=== PATIENT | female | born 1945 | race Caucasian/White ===

== ENCOUNTER 2018-05-15 18:42 | Emergency (ER) | payer MEDICARE, MEDICAID, SELFPAY ==
[2018-05-15 18:44] VITALS: BP 142/76; PULSE 88; RESP 18; TEMP 36.3; O2SAT 98; BMI 20.6
--- NOTE | 2018-05-15 18:54 | RAD_ITS ---
STUDY: X-RAY - LEFT RADIUS AND ULNA REASON FOR EXAM: Female, 72 years old. Fall TECHNIQUE: 2 view(s) of the forearm. COMPARISON: None. FINDINGS: There is no demonstrated soft tissue swelling. There is demineralization of the radius. There is a comminuted distal radial fracture that appears intra-articular. There appears to be a nondisplaced distal ulnar fracture visualized as well. There is demineralization of the ulna. RAD/Forearm 2 Views IMPRESSION: Comminuted distal radial fracture. Likely nondisplaced distal ulnar fracture. Electronically Signed: Melyssa Escalante MD at 20:10 EST Tel , Service support ,
--- NOTE | 2018-05-15 19:06 | RAD_ITS ---
STUDY: X-RAY - PELVIS REASON FOR EXAM: Female, 72 years old. Fall. TECHNIQUE: One view of the pelvis was obtained. COMPARISON: Right hip dated March 09, 2018 FINDINGS: There is a non-specific bowel gas pattern. Normal visualized soft tissue structures. There are degenerative changes of the sacroiliac joints. Normal visualized bilateral superior and inferior pubic rami. Normal pubic symphysis. Normal ischial tuberosities. There are degenerative changes of the hips characterized by joint space narrowing and subchondral sclerosis. RAD/Pelvis 1 or 2 Views IMPRESSION: Degenerative changes. Electronically Signed: Melyssa Escalante MD at 20:12 EST Tel , Service support ,
--- NOTE | 2018-05-15 20:10 | RAD_ITS ---
STUDY: X-RAY - LEFT SHOULDER REASON FOR EXAM: Female, 72 years old. Fell. TECHNIQUE: 4 view(s) of the shoulder. COMPARISON: None. FINDINGS: Normal glenohumeral articulation. There are degenerative changes of the acromioclavicular joint. Normal acromion. Normal humeral head and visualized proximal humerus. There is a deformity of the mid/distal clavicle transition assistant with a old fracture. The soft tissue structures are unremarkable. Normal visualized pulmonary apex. RAD/Shoulder min 2 Views IMPRESSION: Degenerative changes. Electronically Signed: Melyssa Escalante MD at 20:54 EST Tel , Service support ,
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
--- NOTE | 2018-05-15 21:12 | ED.DEP ---
ED Disposition - Plan for ED Patient: Disposition: Home or Assisted Living Chief Complaint: Fall Instructions: ED Fx Colles Wrist No Redu Requ Referrals: Care Physician,No Primary [Primary Care Provider] - Greg Beltre DO [STAFF PHYSICIAN] -
== END 2018-05-15 21:23 | disposition home or self-care (01) ==
PROVIDERS: Emergency Provider Emergency Medicine
DX: S52.502A Unspecified fracture of the lower end of left radius, initial encounter for closed fracture (principal); S52.602A Unspecified fracture of lower end of left ulna, initial encounter for closed fracture; S30.0XXA Contusion of lower back and pelvis, initial encounter; X58.XXXA Exposure to other specified factors, initial encounter; Y93.I9 Activity, other involving external motion
CPT/HCPCS: 29125; 72170; 73030; 73090; 99282

== ENCOUNTER → 2018-05-20 16:33 | Outpatient (CLI) | payer MEDICARE, MEDICAID, SELFPAY ==
[2018-05-15 18:44] VITALS: BMI 20.6
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
== END ==
PROVIDERS: Referring Provider Physician Assistant Surgical; Visit Provider Physician Assistant Surgical
DX: S32.592A Other specified fracture of left pubis, initial encounter for closed fracture (principal); X58.XXXA Exposure to other specified factors, initial encounter
CPT/HCPCS: 73700

== ENCOUNTER 2018-06-03 18:41 | Emergency (ER) | payer MEDICARE, SELFPAY ==
[2018-06-03 18:43] VITALS: BP 140/74; PULSE 116; RESP 17; TEMP 37.1; O2SAT 100; BMI 20.9
[2018-06-03 19:21] VITALS: BP 157/86; PULSE 114; RESP 22; TEMP 36.1; O2SAT 99
--- NOTE | 2018-06-03 20:14 | EKG12_ITS ---
Test Reason : Blood Pressure : / mmHG Vent. Rate : 107 BPM Atrial Rate : 107 BPM P-R Int : 158 ms QRS Dur : 084 ms QT Int : 346 ms P-R-T Axes : 077 066 077 degrees QTc Int : 461 ms Sinus tachycardia with occasional Premature ventricular complexes Otherwise normal ECG Confirmed by SHARI BRIGGS, ANDRES ([id number]), managing editor CECILIA WIGGINS ([id number] on 06/04/2018 5:18:59 PM Referred By: NICK Confirmed By:ANDRES MCCARTHY MD
--- NOTE | 2018-06-03 20:22 | ED.RN ---
NO OLD EKGS IN MUSE
--- NOTE | 2018-06-03 20:47 | ED.DCSUM_ITS ---
- ER Visit Summary Date of Service: 06/03/18 Chief Complaint: Tachycardia History of Present Illness: The patient is a 72 F who presents with tachycardia that was noticed today. Patient was at a doctor's office and her heart rate was noted to be elevated. Patient was then referred to the emergency department for further evaluation. Patient denies any palpitations. Patient states she fell recently and has a fracture of her pelvis and left distal radius and ulna. Patient states she has been having some pain in her pelvis since the fall. Patient states she has been having difficulty sitting and standing because of the pelvis fracture. Patient states she is also allergic to all medications and has several chemical sensitivities. Patient states she does not take any medications at all. Physical Examination: Vital signs are stable for mild tachycardia of 114. Patient is afebrile. Patient is in no acute distress. Oral mucosa is pink and moist. Neck is supple. Trachea is midline. There is no JVD noted. Heart was regular and tachycardic. Lungs are clear and equal bilaterally. Abdomen is soft and nontender. Cranial nerves II through XII are intact. There are no focal motor or sensory deficits noted. Extremities are intact. There is some mild erythema on the medial aspect of the left ankle. There is no calf tenderness. There is no peripheral edema noted. The remaining physical exam was within normal limits. Test Results: EKG showed sinus tachycardia with a rate of 107. There are no acute ST or T wave changes. There is occasional PVC noted. There are no prior EKGs available for comparison. Basic metabolic profile was obtained. Sodium was slightly low at 127. Chloride was slightly low at 90. Emergency Department Course and Treatment: Patient was instructed to go home and rest. Patient does not want any further testing or treatment done at this time. Patient does not want any medications to help with her tachycardia. I feel that the tachycardia is most likely due to anxiety. Patient was instructed to follow-up with her primary care physician in 5-7 days. Patient and her family understood and were agreeable with the plan. All questions were answered. Disposition: Discharge home Impression: 1. Tachycardia This note was generated with [employer] software. It may contain incorrect words, spelling, and punctuation that were not noted in review of the chart prior to signing ED Disposition - Plan for ED Patient: Disposition: Home or Assisted Living Chief Complaint: Other, Pain/Inj Diagnosis: Tachycardia Instructions: ED Palpitations Referrals: Care Physician,No Primary [Primary Care Provider] - Jihan Perea DO [STAFF PHYSICIAN] -
[2018-06-03 20:50] VITALS: BP 146/70; PULSE 125; RESP 16; O2SAT 97
[2018-06-03 21:42] LABS: Anion Gap 9 (5-15); BUN 14 mg/dL (7-18); BUN/Creat Ratio 17.3 RATIO (10-20); Calcium,Total 8.5 mg/dL (8.5-10.1); Chloride 93 mmol/L (98-107); Creatinine, Serum 0.81 mg/dL (0.55-1.02); EST Glomerular Filtration Rate 74 mL/min (>60); Est Glom Filt Rate - Afr Amer 89 mL/min (>60); Estimated Creatinine Clearance 58.44 ml/min; Glucose 113 mg/dL (74-106); Potassium 3.7 mmol/L (3.5-5.1); Sodium Level 127 mmol/L (136-145)
[2018-06-03 21:46] VITALS: BP 150/80; PULSE 117; RESP 18; O2SAT 98
[2018-06-03 23:29] VITALS: BP 155/90; PULSE 105; RESP 16; O2SAT 97; O2SAT 98
== END 2018-06-03 23:33 | disposition home or self-care (01) ==
PROVIDERS: Emergency Provider Emergency Medicine
DX: R00.0 Tachycardia, unspecified (principal)
CPT/HCPCS: 80048; 93005; 99283; A4216

== ENCOUNTER 2021-06-21 14:24 | Outpatient (CLI) | payer MEDICARE, SELFPAY | END 2021-06-21 23:59 | disposition short-term general hospital (02) | LOC: LABSPEC 14:24 | PROVIDERS: Referring Provider Physician Assistant Surgical; Visit Provider Physician Assistant Surgical | DX: Z20.822 Contact with and (suspected) exposure to COVID-19 (principal) | CPT/HCPCS: 87635; U0003; U0005 ==

== ENCOUNTER 2022-11-26 20:00 | Inpatient (IN) | payer MEDICARE, MEDICAID, SELFPAY ==
[2022-11-26 20:04] VITALS: BP 154/101; PULSE 128; RESP 16; TEMP 36.7; O2SAT 98; BMI 25.0
--- NOTE | 2022-11-26 20:20 | EDS_ITS ---
HPI <YODIT Vasquez - Last Filed: 11/26/22 20:55> History of Present Illness Chief Complaint: Other, Pain/Inj Narrative Narrative: 77-year-old female presents with pelvic pain and inability to ambulate x5 days. No fall or trauma. She was more active than usual and started to have pain and got into bed and then was not able to get up. The left side of her pelvis hurts worse and both knees are painful. She refuses to take any medications so has not been taking anything for pain. Her daughters come over to help with ADLs and toileting. She has a history of a remote left pelvic fracture. She has no weakness, numbness or tingling. She does not take any medications. PFSH <YODIT Vasquez - Last Filed: 11/26/22 20:55> [facility] Medical History Arthritis Osteopenia Pelvic fracture Allergy/AdvReac Type Severity Reaction Status Date / Time ALL MEDS Allergy Other Uncoded 06/03/18 18:43 Social History Smoking Status: Never smoker ROS <YODIT Vasquez Last Filed: 11/26/22 20:55> ROS ED ROS Narrative Constitutional: Negative for fever, chills, malaise. CVS: Negative for palpitations, chest pain, syncope. Respiratory: Negative for shortness of breath, cough. GI: Negative for abdominal pain, nausea, vomiting : Negative for dysuria. Neuro: Negative for motor/sensory dysfunction. Skin: Negative for wound. Musc: Positive for bilateral hip and knee pain. No trauma. EXAM <YODIT Vasquez - Last Filed: 11/26/22 20:55> Physical Exam Narrative Exam Narrative: CONST: Patient sitting in no acute distress. EYES: Normal inspection. NECK: Normal inspection. RESP: No respiratory distress, CTAB. CVS: Regular rate and rhythm, no murmur, no gallop. ABD: Soft and nontender, no guarding or rebound, nondistended. Pelvis: Stable, tender left greater than right. SKIN: Color normal, no rash, warm, dry, intact. EXTREMITIES: Normal appearance of upper and lower extremities, full ROM upper extremities with no tenderness and 2+ radial pulses. Pain with range of motion of both hips and knees. Patient yells when I touch any of these areas very lightly. No deformity, no shortening or rotation, normal sensation and 2+ DP pulses. NEURO: Alert to self, place, month, stated year was 2002. PSYCH: Normal affect. Const Vital Signs: 11/26/22 20:04 11/26/22 21:41 11/26/22 20:17 Temperature 98.0 F Temperature Source Temporal Pulse Rate 128 H 130 H Respiratory Rate 16 23 H Respiratory Effort Non-Labored Blood Pressure 154/101 H 173/81 H Blood Pressure Mean 118 111 Pulse Ox 98 97 Oxygen Delivery Method Room Air Room Air 11/26/22 22:47 Temperature 98.0 F Temperature Source Temporal Pulse Rate 124 H Respiratory Rate 20 H Respiratory Effort Blood Pressure 158/93 H Blood Pressure Mean 114 Pulse Ox 97 Oxygen Delivery Method Room Air <Dr. Arun Myers DO - Last Filed: 11/26/22 23:26> Physical Exam Const Vital Signs: 11/26/22 20:04 11/26/22 21:41 11/26/22 20:17 Temperature 98.0 F Temperature Source Temporal Pulse Rate 128 H 130 H Respiratory Rate 16 23 H Respiratory Effort Non-Labored Blood Pressure 154/101 H 173/81 H Blood Pressure Mean 118 111 Pulse Ox 98 97 Oxygen Delivery Method Room Air Room Air 11/26/22 22:47 Temperature 98.0 F Temperature Source Temporal Pulse Rate 124 H Respiratory Rate 20 H Respiratory Effort Blood Pressure 158/93 H Blood Pressure Mean 114 Pulse Ox 97 Oxygen Delivery Method Room Air [facility] <YODIT Vasquez - Last Filed: 11/26/22 20:55> [facility] Narrative Medical decision making narrative: History gathered from: Patient and daughter She has atraumatic pelvic and bilateral knee pain causing an inability to ambulate x5 days. She appears well and nontoxic. She was hypertensive and tachycardic in triage but clinically does not look septic. She is somewhat agitated which may contribute to these vital signs. She has no external signs of injury. She has pain to light touch on both sides of her pelvis and both knees but they are symmetric and distal pulses are intact. X-rays were ordered to rule out fracture but this is unlikely with no history of trauma. Since she has been lying in bed for 5 days blood work was also ordered. She refused to let the nurse leave an IV in or receive IV fluids. Tests are pending and case will be signed over to my attending physician. Differential: Fracture, arthritis, inflammatory joint process, electrolyte abnormality Lab Data Attestation: I reviewed the patient's lab results. Labs: Laboratory Results - last 24 hr 11/26/22 11/26/22 20:30 22:30 WBC 10.1 RBC 3.24 L Hgb 11.2 L Hct 32.0 L MCV 98.8 MCH 34.6 H MCHC 35.0 RDW Std Deviation 45.1 H RDW Coeff of Wanda 12.4 Plt Count 374 MPV 8.6 Immature Gran % (Auto) 0.500 Neut % (Auto) 79.9 H Lymph % (Auto) 9.5 L Warren % (Auto) 9.6 Eos % (Auto) 0.3 Baso % (Auto) 0.2 Absolute Neuts (auto) 8.1 H Absolute Lymphs (auto) 0.96 Nucleated RBC % 0 ESR 37 H Sodium 118 L* Potassium 3.6 Chloride 85 L Carbon Dioxide 27.0 Anion Gap 6 BUN 18 Creatinine 0.69 Estim Creat Clear Calc 45.82 Est GFR (MDRD) Af Amer 106 Est GFR (MDRD) Non-Af 88 BUN/Creatinine Ratio 26.0 H Glucose 127 H Calcium 9.0 Total Creatine Kinase 486 H C-React Prot Ext Range 220.00 H Urine Color Yellow Urine Clarity Clear Urine pH 7.0 Ur Specific [place] 1.010 Urine Protein 30 H Urine Glucose (UA) Normal Urine Ketones 15 H Urine Occult Blood 25 H Urine Nitrite Negative Urine Bilirubin Negative Urine Urobilinogen 8 H Ur Leukocyte Esterase Negative Urine RBC 0 SEEN Urine WBC 0 SEEN Ur Squamous Epith Cells 0 SEEN Urine Bacteria 0 SEEN Urine Mucus 0 SEEN Radiography Diagnostic Testing: Clinical Impression(s) from Imaging Studies Chest X-Ray 11/26/22 20:50 IMPRESSION: No acute radiographic abnormalities. Electronically Signed: Sabas Benedict MD at 22:38 EDT , KUB X-Ray 11/26/22 20:50 IMPRESSION: Findings concerning for small bowel obstruction. Electronically Signed: Sabas Benedict MD at 22:37 EDT , ADDENDUM: 11/26/22 2251 IMPRESSION: Findings concerning for small bowel obstruction. N.B. : Justin Huizar MD, confirmed on 11/26/2022 22:44:59 (ET) that the healthcare facility has received the radiology report. Electronically Signed: Sabas Benedict MD at 22:37 EDT , Knee X-Ray 11/26/22 20:50 IMPRESSION: Moderate, lateral compartment predominant, tricompartmental degenerative arthrosis of the knee. Chondrocalcinosis consistent with CPPD. Small joint effusion. Electronically Signed: Sabas Benedict MD at 22:36 EDT , <Dr. Arun Myers, DO - Last Filed: 11/26/22 23:26> [facility] Narrative Medical decision making narrative: History gathered from: Patient and daughter, MARIO She has atraumatic pelvic and bilateral knee pain causing an inability to amb ulate x5 days. She appears well and nontoxic. She was hypertensive and tachycardic in triage vitals but clinically does not look septic. Patient arrived by EMS. she is somewhat agitated which may contribute to these vital signs. She has no external signs of injury. She has pain to light touch on both sides of her pelvis and both knees but they are symmetric and distal pulses are intact. X-rays were ordered to rule out fracture but this is unlikely with no history of trauma. Since she has been lying in bed for 5 days blood work was also ordered. She refused to let the nurse leave an IV in or receive IV fluids. Tests are pending and case will be signed over to my attending physician. Differential: Fracture, arthritis, inflammatory joint process, electrolyte abnormality Lab Data Attestation: I reviewed the patient's lab results. Labs: Laboratory Results - last 24 hr 11/26/22 11/26/22 20:30 22:30 WBC 10.1 RBC 3.24 L Hgb 11.2 L Hct 32.0 L MCV 98.8 MCH 34.6 H MCHC 35.0 RDW Std Deviation 45.1 H RDW Coeff of Wanda 12.4 Plt Count 374 MPV 8.6 Immature Gran % (Auto) 0.500 Neut % (Auto) 79.9 H Lymph % (Auto) 9.5 L Warren % (Auto) 9.6 Eos % (Auto) 0.3 Baso % (Auto) 0.2 Absolute Neuts (auto) 8.1 H Absolute Lymphs (auto) 0.96 Nucleated RBC % 0 ESR 37 H Sodium 118 L* Potassium 3.6 Chloride 85 L Carbon Dioxide 27.0 Anion Gap 6 BUN 18 Creatinine 0.69 Estim Creat Clear Calc 45.82 Est GFR (MDRD) Af Amer 106 Est GFR (MDRD) Non-Af 88 BUN/Creatinine Ratio 26.0 H Glucose 127 H Calcium 9.0 Total Creatine Kinase 486 H C-React Prot Ext Range 220.00 H Urine Color Yellow Urine Clarity Clear Urine pH 7.0 Ur Specific [place] 1.010 Urine Protein 30 H Urine Glucose (UA) Normal Urine Ketones 15 H Urine Occult Blood 25 H Urine Nitrite Negative Urine Bilirubin Negative Urine Urobilinogen 8 H Ur Leukocyte Esterase Negative Urine RBC 0 SEEN Urine WBC 0 SEEN Ur Squamous Epith Cells 0 SEEN Urine Bacteria 0 SEEN Urine Mucus 0 SEEN Radiography Chest X-Ray - ED: Read by ED Physician (2 view chest x-ray pelvis, KUB, and bilateral x-ray of the knees were read by . No acute cardiopulmonary disease, no infiltrate, no effusion. Patient's pelvis and bilateral knee x-ray was also read, no acute abnormalities. KUB was also read, nonspecific bowel gas pattern, no air-fluid.) Diagnostic Testing: Clinical Impression(s) from Imaging Studies Chest X-Ray 11/26/22 20:50 IMPRESSION: No acute radiographic abnormalities. Electronically Signed: Sabas Benedict MD at 22:38 EDT , KUB X-Ray 11/26/22 20:50 IMPRESSION: Findings concerning for small bowel obstruction. Electronically Signed: Sabas Benedict MD at 22:37 EDT , ADDENDUM: 11/26/22 2251 IMPRESSION: Findings concerning for small bowel obstruction. N.B. : Justin Huizar MD, confirmed on 11/26/2022 22:44:59 (ET) that the healthcare facility has received the radiology report. Electronically Signed: Sabas Benedict MD at 22:37 EDT , Knee X-Ray 11/26/22 20:50 IMPRESSION: Moderate, lateral compartment predominant, tricompartmental degenerative arthrosis of the knee. Chondrocalcinosis consistent with CPPD. Small joint effusion. Electronically Signed: Sabas Benedict MD at 22:36 EDT , EKG Initial EKG: Attestation: I personally reviewed and interpreted this EKG as follows: Comments: EKG interpretation. Sinus tachycardia 125. Normal axis deviation. No acute ST elevation, no acute ectopy. QTc of 450. Additional Tests and Interventions Additional Tests or Interventions: Radiologist read KUB and pelvis x-ray as concern for possible small bowel obstruction. These results were discussed with admitting hospitalist, Dr. Rudolph. CT of the abdomen pelvis will be ordered, at the recommendation of Dr. Rudolph, and he will follow the results of test as well. Treatment and Re-Evaluation Comments:: Patient initially presented tachycardic in the 120?130s. Patient was refusing IV, IV fluids. Patient and her daughter at bedside is the power of disability attorney understand the importance of IV fluids for initial presentation secondary to being bedridden for the past 4 to 5 days. Patient is adamant she has been drinking enough water at home, and was refusing IV fluids at this time. patient sodium was 118, chloride was 85. BUN was 26, glucose 124, CK was 486. Daughter has been at bedside throughout patient's ER visit. Patient's daughter is power of disability attorney. SHe has been is extremely difficult to take care of this patient trying to get her to allow us to perform medical intervention including establishing an IV, giving her IV fluids, especially normal saline, and also placing Jung catheter to help measure I's and O's and obtain urine sample. Patient was initially seen evaluated by Jihan physician customer care assistant. I then spoke to the patient at bedside with Jihan CABRERA and nursing staff Jihan CHUNG as a witness at bedside trying to reason with the patient to allow us to take care of her. Patient was initially on a Alvarado backboard, initially refusing to be removed from the Alvarado backboard for unknown reason. Patient is refusing any type of medications, refusing any type of pain medications. Patient is alert and orient x3, slightly confused to the year, but knows it is November, her name, and she is at [facility]. Patient does have the right to refuse pain medication, but I was trying to reason with the patient to allow IV, IV fluids because she has been in bed for 5 days, most likely dehydrated, rhabdomyolysis, and having other lab abnormalities was explained to the patient and daughter on why the patient was not making the proper decision by refusing care initially. Questionable whether patient is slightly delirious from other organic etiologies was discussed with patient's daughter, nursing staff and Jihan CABRERA outside After we received patient's lab work to come back, along with x-ray findings, another discussion was had by myself, Jihan CHUNG, and the daughter at bedside for another 20 minutes. Patient finally was agreeing to Jung catheter, IV placement, and IV normal saline. Patient understands hyponatremia, rhabdomyolysis, acute kidney injury, and the need for further treatment admission to the hospital. Patient is agreeing. Patient's case was discussed with nighttime hospitalist, Dr. Rudolph. Dr Rudolph want a repeat basic metabolic test ordered, and then also wanted a CT of the abdomen pelvis secondary to the radiographic reading from the radiologist of concern for small bowel obstruction. Patient has IV iodine dye, patient is refusing any type of pretreatment or IV iodine treatment for CT of the abdomen pelvis. Patient is refusing to drink oral contrast. Patient will have a noncontrast CT of the abdomen and pelvis because she is refusing any other medication besides IV no rmal saline at this time. Patient is going to be admitted to [facility] inpatient telemetry status and Dr. Rudolph will follow-up on the results of the CT of the abdomen pelvis this evening. <Dr. Arun Myers, DO - Last Filed: 11/26/22 23:26> Critical Care Time Critical care time (excluding procedures): 30-74 minutes (Multiple bedside visits were made by myself, physician customer care assistant, nursing staff, trying to reason with the patient, discussed patient's care with daughter outside the patient's room, and try to educate patient on a appropriate decision making needed to allow us to help treat her in the ER tonight. ) Discharge Plan Dx/Rx/DC Orders Clinical Impression: Inability to walk, Acute kidney injury, Acute dehydration, Rhabdomyolysis, Tachycardia, Acute hyponatremia, Hypochloremia, Acute bilateral knee pain Disposition Disposition: [facility]
[2022-11-26 20:47] LABS: Absolute Lymphocyte Count 0.96 X10^3/uL (0.83-4.51); Absolute Neutrophil Count 8.1 X10^3/uL (2.0-7.7); Basophil# 0.02 X10^3/uL; Basophil% 0.2 % (0-1); Eosinophil# 0.03 X10^3/uL; Eosinophils% 0.3 % (0-5); Hemoglobin 11.2 g/dL (12.0-15.0); Lymphocyte # 0.96 X10^3/ul (0.83-4.51); Lymphocyte % 9.5 % (19-41); Mean Corpuscular Hgb 34.6 pg (27.0-32.0); Mean Corpuscular Volume 98.8 fL (81-99); Mean Platelet Vol. 8.6 fl (6.2-12.0); Monocyte# 0.97 X10^3/uL; Monocyte% 9.6 % (0-10); NRBC Flagged by Analyzer 0 % (0-5); Neutrophil # 8.08 X10^3/uL (2.7-7.7); Neutrophil % 79.9 % (47-70); Platelet Count 374 K/mm3 (150-450); RBC Distribution Width CV 12.4 % (11.6-14.6); RBC Distribution Width SD 45.1 fl (35.1-43.9); Red Blood Count 3.24 M/mm3 (4.2-5.4); White Blood Count 10.1 K/mm3 (4.4-11.0)
--- NOTE | 2022-11-26 20:49 | EKG12_ITS ---
Test Reason : FALL Blood Pressure : / mmHG Vent. Rate : 125 BPM Atrial Rate : 125 BPM P-R Int : 144 ms QRS Dur : 086 ms QT Int : 312 ms P-R-T Axes : 079 052 066 degrees QTc Int : 450 ms Sinus tachycardia Otherwise normal ECG Confirmed by SHARI BRIGGS, ANDRES ([id number]), publishing editor KENNETH GARLAND ([id number]) on 11/28/2022 11:39:39 AM Referred By: Confirmed By:ANDRES MCCARTHY MD
--- NOTE | 2022-11-26 20:50 | RAD_ITS ---
INDICATION: pain EXAMINATION/TECHNIQUE: X-RAY - RIGHT XR Knee 1 or 2 Views COMPARISON: None. FINDINGS: No acute fracture or malalignment. Moderate, lateral compartment predominant, tricompartmental joint space narrowing and osteophytosis. There is chondrocalcinosis in the medial compartment. Small joint effusion. The soft tissues are unremarkable. RAD/Knee 1 or 2 Views IMPRESSION: Moderate, lateral compartment predominant, tricompartmental degenerative arthrosis of the knee. Chondrocalcinosis consistent with CPPD. Small joint effusion. Electronically Signed: Sabas Benedict MD at 22:36 EDT ,
--- NOTE | 2022-11-26 20:50 | RAD_ITS ---
INDICATION: constipation EXAMINATION/TECHNIQUE: X-RAY - XR Abdomen 1 View COMPARISON: None FINDINGS: BOWEL GAS PATTERN: Multiple dilated air-filled loops of small bowel measuring up to 4.1 cm in diameter. Large volume of retained stool in colon.. FREE AIR: Not assessed on a single supine view. ORGANOMEGALY: Not seen. CALCIFICATIONS: No abnormal calcifications observed. LOWER CHEST: No acute pathology. BONES AND SOFT TISSUES: No acute pathology. RAD/Abdomen Single View (Portable) IMPRESSION: Findings concerning for small bowel obstruction. Electronically Signed: Sabas Benedict MD at 22:37 EDT ,
--- NOTE | 2022-11-26 20:50 | RAD_ITS ---
INDICATION: cough EXAMINATION/TECHNIQUE: X-RAY - XR Chest 1 View COMPARISON: None. FINDINGS: The lungs are clear. Tortuous and calcified thoracic aorta. The heart is not enlarged. No pleural effusion or pneumothorax. Degenerative changes of the thoracic spine. RAD/Chest 1 View (Portable) IMPRESSION: No acute radiographic abnormalities. Electronically Signed: Sabas Benedict MD at 22:38 EDT ,
--- NOTE | 2022-11-26 20:50 | ED.RN ---
ED ORDERS TO START IV, OBTAIN BLOOD WORK AND INFUSE IV FLUIDS. PT RELUCTANT TO GET IV BUT FINALLY AGREED. STARTED IV AND OBTAINED BLOOD WORK. WENT TO SECURE IV LOCK AND PT SAID NO YOU ARE NOT LEAVING THAT IN. TRIED TO EXPLAIN THAT IT IS JUST TO HAVE IV ACCESS. PT SAID NO TAKE IT OUT. TOOK OUT IV AND INFORMED HOLLAND HOLLIDAY.
--- NOTE | 2022-11-26 20:54 | ED.RN ---
ACCOMPANIED DR HARRIS AND HOLLAND MONSIVAIS TO PT'S BEDSIDE TO DISCUSS THE PLAN OF CARE AND REASON FOR IV, FLUIDS, ETC. DR HARRIS SPOKE WITH PT FOR SEVERAL MINUTES EXPLAINING TO PATIENT THE PROBABILITY OF ADMISSION , THE NEED OF IV, ETC. DAUGHTER AT BEDSIDE. PT IN AGREEMENT TO XRAYS BUT DOES NOT WANT AN IV AT THIS TIME
[2022-11-26 20:56] LABS: Erythrocyte Sedimentation Rate 37 mm/hr (0-30)
[2022-11-26 21:31] LABS: Anion Gap 6 (5-15); BUN 18 mg/dL (7-18); CPK Total, Creatine Kinase 486 U/L (26-192); Chloride 85 mmol/L (98-107); Creatinine, Serum 0.69 mg/dL (0.55-1.02); EST Glomerular Filtration Rate 88 mL/min (>60); Est Glom Filt Rate - Afr Amer 106 mL/min (>60); Estimated Creatinine Clearance 45.82 ml/min; Glucose 127 mg/dL (74-106); Potassium 3.6 mmol/L (3.5-5.1); Sodium Level 118 mmol/L (136-145)
[2022-11-26 21:41] VITALS: BP 173/81; PULSE 130; RESP 23; O2SAT 97
--- NOTE | 2022-11-26 21:44 | ED.RN ---
ACCOMPANIED DR BAKER WHILE SPEAKING TO DAUGHTER OUTSIDE PT'S ROOM. PT'S HR 130'S, DR HARRIS EXPRESSED THE IMPORTANCE OF GETTING IV AND IV FLUIDS. DAUGHTER UNDERSTANDS AND IS POA. PLAN TO WAIT ON ALL RESULTS AND THEN WILL SPEAK AGAIN WITH PATIENT
--- NOTE | 2022-11-26 22:18 | HP.PCM.HOS_ITS ---
HPI - General General Date of Admission: 11/26/22 Date of Service: 11/26/22 Chief Complaint: inability to take care of self HPI Narrative CY WIGGINS, is a 77 F who presents to the emergency department because of inability to take care of herself. Reportedly patient has been confined to bed secondary to pain in the bilateral pelvis and in the bilateral knees. Reportedly she had excruciating pain when she attempts to move. Patient complains of multiple allergies and she become very tearful in bed. [facility] Medical History Arthritis Osteopenia Pelvic fracture Allergy/AdvReac Type Severity Reaction Status Date / Time ALL MEDS Allergy Other Uncoded 06/03/18 18:43 Family History unable to obtain unable to obtain Surgical History no surgical history no surgical history Social History Smoking Status: Never smoker ROS ROS Narrative Pertinent positives and pertinent negatives as noted in HPI. All other systems were reviewed and are negative Vital Signs Vital Signs Vital Signs: 11/26/22 20:04 11/26/22 21:41 11/26/22 20:17 Temperature 98.0 F Temperature Source Temporal Pulse Rate 128 H 130 H Respiratory Rate 16 23 H Respiratory Effort Non-Labored Blood Pressure 154/101 H 173/81 H Blood Pressure Mean 118 111 Pulse Ox 98 97 Oxygen Delivery Method Room Air Room Air Weight Weight: 72.3 kg Body Mass Index (BMI) 25.0 Physical Exam Narrative Physical exam: General: Well-nourished, well-developed. Head: Normocephalic, atraumatic, no tenderness Eyes: Vision is grossly intact. EOMI ENT, no trauma, dry mucous membranes, no rhinorrhea Neck: Nontender, No thyromegaly. CVS: Regular rate and rhythm. S1-S2 present. No murmur, gallop or rub. Respiratory : clear to auscultation bilaterally, chest wall nontender Abdomen: Soft, nontender, nondistended, normal bowel sounds, no masses : Deferred Back: Nontender, no CVA tenderness, no midline spinal tenderness, deformities, s tep-offs Extremities: Nontender full range of motion, no trauma Skin: Normal color, no trauma, abrasions Neuro: Alert, oriented, cranial nerves II through XII grossly intact. Psychiatry: Tearful Results Lab / Micro Data 11/26/22 20:30 11/27/22 02:20 Labs: Laboratory Results - last 24 hr 11/26/22 20:30: WBC 10.1, RBC 3.24 L, Hgb 11.2 L, Hct 32.0 L, MCV 98.8, MCH 34.6 H, MCHC 35.0, RDW Std Deviation 45.1 H, RDW Coeff of Wanda 12.4, Plt Count 374, MPV 8.6, Immature Gran % (Auto) 0.500, Neut % (Auto) 79.9 H, Lymph % (Auto) 9.5 L, Ritchie % (Auto) 9.6, Eos % (Auto) 0.3, Baso % (Auto) 0.2, Absolute Neuts (auto) 8.1 H, Absolute Lymphs (auto) 0.96, Nucleated RBC % 0, ESR 37 H, Sodium 118 L*, Potassium 3.6, Chloride 85 L, Carbon Dioxide 27.0, Anion Gap 6, BUN 18, Creatinine 0.69, Estim Creat Clear Calc 45.82, Est GFR (MDRD) Af Amer 106, Est GFR (MDRD) Non-Af 88, BUN/Creatinine Ratio 26.0 H, Glucose 127 H, Calcium 9.0, Total Creatine Kinase 486 H, C-React Prot Ext Range 220.00 H Assessment & Plan Assessment/Plan (1) Acute hyponatremia: (2) Adult failure to thrive: (3) SBO (small bowel obstruction): PLAN: Plan Acute hyponatremia Sodium of 118 on presentation. Repeat same. Check uric acid Check urine osmolarity Check urine sodium Check serum osmolality Gentle IV hydration. Serial BMP ordered. Adult failure to thrive, bilateral hip pain, bilateral knee pain PT OT worked with patient. Case management consult. Tylenol as needed and IV Toradol as needed ordered. Small bowel obstruction KUB still and abdomen/pelvis CT with possible small bowel obstruction. Possible small bowel obstruction. Patient's last bowel movement about 3 days ago. N.p.o. ordered. General surgery consult. DVT prophylaxis: SCDs ordered. Time spent in the patient's overall evaluation,decision-making process, review of diagnostic data, adjustment of management, discussion with other providers, nursing nursing and ancillary staff involved in patient's care documentation, 44 minutes. Charges/Coding Visit Charges Inpatient E&M: 18446 Init Hosp L2
[2022-11-26 22:38] LABS: Bacteria 0 SEEN /hpf (None Seen); Mucous, Urine 0 SEEN /hpf (<or=2+); Red Blood Cells-Urine 0 SEEN /hpf (0-5); Squamous Epithelial Cells - UA 0 SEEN /hpf (5-10); White Blood Cells 0 SEEN /hpf (0-5)
[2022-11-26 22:40] LABS: Color, Urine Yellow (Yellow); Glucose, Dipstick Normal (Normal); Ketone-Dipstick 15 mg/dl (Negative); Leukocyte Esterase-Dipstick Negative /ul (Negative); Nitrite-Dipstick Negative (Negative); Occult Blood-Urine 25 /ul (Negative); Protein-Dipstick 30 mg/dl (Negative); Urine Bilirubin Dipstick Negative (Negative); Urine Clarity Clear (Clear); Urine Urobilinogen 8 mg/dl (Normal)
--- NOTE | 2022-11-26 22:46 | CT_ITS ---
EXAM: CT ABDOMEN AND PELVIS WITHOUT INTRAVENOUS CONTRAST CLINICAL INDICATION: concern from SBO, IV and oral TECHNIQUE: Helically acquired images were obtained of the abdomen and pelvis without intravenous contrast. This CT exam was performed using one or more of the following dose reduction techniques: automated exposure control, adjustment of the mA and/or kV according to patient size, and/or use of iterative reconstruction technique. RADIATION DOSE: CTDIvol = 6.16 mGy, DLP = 310.94 mGy-cm. COMPARISON: No relevant prior studies available. FINDINGS: LOWER THORAX: The heart is not fully included. At least minimal coronary artery calcifications. Minimal bands of atelectasis in the lung bases. No significant pericardial effusion. ABDOMEN: LIVER: Unremarkable. Homogeneous. GALLBLADDER AND BILE DUCTS: Minimally distended gallbladder, no obvious stones or inflammation. No intra- or extrahepatic biliary ductal dilation. PANCREAS: Unremarkable. No focal cystic mass. SPLEEN: Unremarkable. Normal size without focal cystic or solid mass. ADRENALS: Unremarkable. No nodules. KIDNEYS AND URETERS: Mild bilateral hydroureteronephrosis, left renal pelvis 2.2 cm, right renal pelvis 1.4 cm AP, left ureter 6 mm near the pelvic brim, small right ureter. Jung catheter balloon in the collapsed urinary bladder. STOMACH AND BOWEL: Almost collapsed stomach, mildly prominent fluid and gas in the small bowel, maximum small bowel diameter roughly 3 cm. Moderate stool in most of the proximal half of the colon, moderate gas in distal transverse colon, moderate gas in descending colon. Moderate diverticulosis in the sigmoid colon, no evidence of diverticulitis. Moderate stool in the rectum. No stomach or bowel distention. PELVIS: APPENDIX: Appendix is not well seen no obvious pericecal inflammation. BLADDER: Unremarkable. REPRODUCTIVE: Unremarkable as visualized. No mass. ABDOMEN and PELVIS: INTRAPERITONEAL SPACE: Unremarkable. No ascites or other fluid collection. No free air. BONES/JOINTS: Old healed fracture of left inferior pubic ramus. Advanced degenerative change at the right hip, mild to moderate. The spine appears demineralized. No spinal stenosis. Multilevel disc calcifications suggesting deposition disease. No suspicious lytic or blastic abnormality. SOFT TISSUES: Unremarkable. No discrete abdominal or pelvic wall hernia. No duct dilatation. VASCULATURE: Aortoiliac calcification and coarse calcifications at the origins of the celiac axis and SMA with at least moderate apparent stenosis at the origin of the celiac axis, mild apparent narrowing at the origin of the celiac axis calcifications and at least mild narrowing at the origins of the renal arteries. Abdominal aorta is non-dilated. LYMPH NODES: Unremarkable. No enlarged lymph nodes. CT/Abdomen/Pelvis without Cont IMPRESSION: 1. Borderline dilated 3 cm small bowel loops in the lower abdomen with collapsed segments of distal ileum may be due to early or mild degree of small bowel obstruction. 2. The colon is not decompressed. Moderate diverticulosis of the sigmoid, no evidence of acute diverticulitis. 3. Nonvisualized appendix. 4. Partially contracted gallbladder. 5. Jung catheter balloon in collapsed urinary bladder. Mild apparent hydroureteronephrosis, uncertain chronicity. Electronically Signed: Evie Henry MD at 1:28 EDT ,
[2022-11-26 22:47] VITALS: BP 158/93; PULSE 124; RESP 20; TEMP 36.7; O2SAT 97
[2022-11-26] MEDS: 0.9% Normal Saline 1,000 ML 999 ML IV (22:49)
[2022-11-26 23:25] LABS: Anion Gap 6 (5-15); BUN 18 mg/dL (7-18); BUN/Creat Ratio 25.6 RATIO (10-20); Calcium,Total 9.5 mg/dL (8.5-10.1); Chloride 84 mmol/L (98-107); EST Glomerular Filtration Rate 86 mL/min (>60); Est Glom Filt Rate - Afr Amer 104 mL/min (>60); Estimated Creatinine Clearance 45.82 ml/min; Glucose 130 mg/dL (74-106); Potassium 3.7 mmol/L (3.5-5.1); Sodium Level 118 mmol/L (136-145)
[2022-11-27 00:23] VITALS: BMI 22.3
[2022-11-27] MEDS: 0.9% Normal Saline 1,000 ML 75 ML IV (01:24)
[2022-11-27 02:05] VITALS: BP 142/70; PULSE 122; RESP 18; TEMP 36.6; O2SAT 97
[2022-11-27 02:13] VITALS: O2SAT 97
[2022-11-27 02:56] LABS: Anion Gap 6 (5-15); BUN 16 mg/dL (7-18); BUN/Creat Ratio 28.8 RATIO (10-20); Calcium,Total 8.6 mg/dL (8.5-10.1); Chloride 93 mmol/L (98-107); Creatinine, Serum 0.56 mg/dL (0.55-1.02); EST Glomerular Filtration Rate 113 mL/min (>60); Est Glom Filt Rate - Afr Amer 136 mL/min (>60); Glucose 140 mg/dL (74-106); Potassium 3.8 mmol/L (3.5-5.1); Sodium Level 123 mmol/L (136-145)
[2022-11-27 03:13] LABS: Osmolality, Serum 259 mOsm/KG (280-301)
[2022-11-27 03:41] LABS: Osmolality, Urine 178 mOsm/KG
[2022-11-27 03:54] LABS: Urine Sodium 35 mmol/L (Not Establ.)
[2022-11-27 06:04] VITALS: BP 128/69; PULSE 110; RESP 17; TEMP 37.2; O2SAT 96
[2022-11-27 06:51] LABS: Absolute Lymphocyte Count 1.12 X10^3/uL (0.83-4.51); Basophil# 0.02 X10^3/uL; Basophil% 0.2 % (0-1); Eosinophil# 0.06 X10^3/uL; Eosinophils% 0.7 % (0-5); Hematocrit 28.7 % (37-47); Hemoglobin 9.9 g/dL (12.0-15.0); Lymphocyte # 1.12 X10^3/ul (0.83-4.51); Lymphocyte % 12.2 % (19-41); Mean Corp Hgb Conc 34.5 g/dL (32-36); Mean Corpuscular Hgb 34.4 pg (27.0-32.0); Mean Corpuscular Volume 99.7 fL (81-99); Mean Platelet Vol. 8.8 fl (6.2-12.0); Monocyte# 0.96 X10^3/uL; Monocyte% 10.5 % (0-10); NRBC Flagged by Analyzer 0 % (0-5); Neutrophil # 6.96 X10^3/uL (2.7-7.7); Neutrophil % 75.9 % (47-70); Platelet Count 363 K/mm3 (150-450); RBC Distribution Width CV 12.3 % (11.6-14.6); Red Blood Count 2.88 M/mm3 (4.2-5.4); White Blood Count 9.2 K/mm3 (4.4-11.0)
[2022-11-27 07:37] LABS: Anion Gap 6 (5-15); BUN 15 mg/dL (7-18); BUN/Creat Ratio 28.3 RATIO (10-20); Calcium,Total 8.7 mg/dL (8.5-10.1); Chloride 94 mmol/L (98-107); Creatinine, Serum 0.53 mg/dL (0.55-1.02); EST Glomerular Filtration Rate 119 mL/min (>60); Est Glom Filt Rate - Afr Amer 144 mL/min (>60); Glucose 123 mg/dL (74-106); Magnesium 1.8 mg/dL (1.6-2.6); Phosphorus 2.9 mg/dL (2.5-4.9); Potassium 3.8 mmol/L (3.5-5.1); Sodium Level 125 mmol/L (136-145); Thyroid Stim Hormone (TSH) 0.66 uIU/mL (0.358-3.74)
--- NOTE | 2022-11-27 08:50 | PN.HOSP_ITS ---
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 Stated that her back really bothers her and she was unable to move her legs. Daughter came out from [place] to see her and care for her but it got to the point where the daughter was unable to care for her as the patient could not even roll over. Patient states that she wants to do a holistic approach to her care and does not want any medicines including things such as NSAIDs and acetaminophen. She is concerned because around 40 to 50 years ago, patient had some severe reaction to hair dye that had a large concentration of peroxide in it. Caused her to have anaphylaxis on her scalp. Objective Data Objective Data Vital Signs: Vital Signs Temp Pulse Resp BP Pulse Ox O2 Del Method 37.2 C 110 H 17 128/69 H 96 Room Air 11/27/22 06:04 11/27/22 06:04 11/27/22 06:04 11/27/22 06:04 11/27/22 06:04 11/27/22 06:04 Oxygen Delivery Method Room Air Weight: 63.7 kg Body Mass Index (BMI) 22.3 Intake & Output: Intake and Output for Last 24 Hours 11/25/22 11/26/22 11/27/22 23:59 23:59 23:59 Intake Total 1000 / 1000 Output Total 650 / 650 Balance 350 / 350 Lab / Micro Data 11/27/22 06:19 11/27/22 12:46 Labs: Laboratory Results - last 24 hr 11/26/22 20:30: WBC 10.1, RBC 3.24 L, Hgb 11.2 L, Hct 32.0 L, MCV 98.8, MCH 34.6 H, MCHC 35.0, RDW Std Deviation 45.1 H, RDW Coeff of Wanda 12.4, Plt Count 374, MPV 8.6, Immature Gran % (Auto) 0.500, Neut % (Auto) 79.9 H, Lymph % (Auto) 9.5 L, Cowley % (Auto) 9.6, Eos % (Auto) 0.3, Baso % (Auto) 0.2, Absolute Neuts (auto) 8.1 H, Absolute Lymphs (auto) 0.96, Nucleated RBC % 0, ESR 37 H, Sodium 118 L*, Potassium 3.6, Chloride 85 L, Carbon Dioxide 27.0, Anion Gap 6, BUN 18, Creatinine 0.69, Estim Creat Clear Calc 45.82, Est GFR (MDRD) Af Amer 106, Est GFR (MDRD) Non-Af 88, BUN/Creatinine Ratio 26.0 H, Glucose 127 H, Calcium 9.0, Total Creatine Kinase 486 H, C-React Prot Ext Range 220.00 H 11/26/22 22:30: Urine Color Yellow, Urine Clarity Clear, Urine pH 7.0, Ur Specific [place] 1.010, Urine Protein 30 H, Urine Glucose (UA) Normal, Urine Ketones 15 H, Urine Occult Blood 25 H, Urine Nitrite Negative, Urine Bilirubin Negative, Urine Urobilinogen 8 H, Ur Leukocyte Esterase Negative, Urine RBC 0 SEEN, Urine WBC 0 SEEN, Ur Squamous Epith Cells 0 SEEN, Urine Bacteria 0 SEEN, Urine Mucus 0 SEEN 11/26/22 22:50: Sodium 118 L*, Potassium 3.7, Chloride 84 L, Carbon Dioxide 28.0, Anion Gap 6, BUN 18, Creatinine 0.70, Estim Creat Clear Calc 45.82, Est GFR (MDRD) Af Amer 104, Est GFR (MDRD) Non-Af 86, BUN/Creatinine Ratio 25.6 H, Glucose 130 H, Uric Acid 3.0, Calcium 9.5 11/27/22 01:15: Urine Osmolality 178, Ur Random Sodium 35 11/27/22 02:20: Sodium 123 L, Potassium 3.8, Chloride 93 L, Carbon Dioxide 24.0, Anion Gap 6, BUN 16, Creatinine 0.56, Estim Creat Clear Calc 44.10, Est GFR (MDRD) Af Amer 136, Est GFR (MDRD) Non-Af 113, BUN/Creatinine Ratio 28.8 H, Glucose 140 H, Serum Osmolality 259 L, Calcium 8.6 11/27/22 06:19: WBC 9.2, RBC 2.88 L, Hgb 9.9 L, Hct 28.7 L, MCV 99.7 H, MCH 34.4 H, MCHC 34.5, RDW Std Deviation 45.0 H, RDW Coeff of Wanda 12.3, Plt Count 363, MP V 8.8, Immature Gran % (Auto) 0.500, Neut % (Auto) 75.9 H, Lymph % (Auto) 12.2 L , Cowley % (Auto) 10.5 H, Eos % (Auto) 0.7, Baso % (Auto) 0.2, Absolute Neuts (auto) 7.0, Absolute Lymphs (auto) 1.12, Nucleated RBC % 0, Sodium 125 L, Potassium 3.8, Chloride 94 L, Carbon Dioxide 25.0, Anion Gap 6, BUN 15, Creatinine 0.53 L, Estim Creat Clear Calc 44.10, Est GFR (MDRD) Af Amer 144, Est GFR (MDRD) Non-Af 119, BUN/Creatinine Ratio 28.3 H, Glucose 123 H, Calcium 8.7, Phosphorus 2.9, Magnesium 1.8, TSH 0.66, Cortisol 12.80 Radiography Diagnostic Testing: Radiology Impression Chest X-Ray 11/26/22 20:50 IMPRESSION: No acute radiographic abnormalities. Electronically Signed: Sabas Benedict MD at 22:38 EDT Reading Location ID and State: [id number] [facility] Tel , Service support , KUB X-Ray 11/26/22 20:50 IMPRESSION: Findings concerning for small bowel obstruction. Electronically Signed: Sabas Benedict MD at 22:37 EDT , ADDENDUM: 11/26/22 3861 IMPRESSION: Findings concerning for small bowel obstruction. N.B. : Justin Huizar MD, confirmed on 11/26/2022 22:44:59 (ET) that the healthcare facility has received the radiology report. Electronically Signed: Sabas Benedict MD at 22:37 EDT , Knee X-Ray 11/26/22 20:50 IMPRESSION: Moderate, lateral compartment predominant, tricompartmental degenerative arthrosis of the knee. Chondrocalcinosis consistent with CPPD. Small joint effusion. Electronically Signed: Sabas Benedict MD at 22:36 EDT , Abdomen/Pelvis CT 11/26/22 22:46 IMPRESSION: 1. Borderline dilated 3 cm small bowel loops in the lower abdomen with collapsed segments of distal ileum may be due to early or mild degree of small bowel obstruction. 2. The colon is not decompressed. Moderate diverticulosis of the sigmoid, no evidence of acute diverticulitis. 3. Nonvisualized appendix. 4. Partially contracted gallbladder. 5. Jung catheter balloon in collapsed urinary bladder. Mild apparent hydroureteronephrosis, uncertain chronicity. Electronically Signed: Evie Henry MD at 1:28 EDT , Physical Exam Const Constitutional Narrative: Extremely anxious. Goes over history and very specific details HEENT head/scalp atraumatic and moist oral mucous membranes Neuro Neuro Narrative: Limited. Sensation appears to be grossly intact. When pressing on the bottoms of her forefoot, patient yelled out Assessment & Plan Assessment/Plan (1) Acute hyponatremia: PLAN: Improved Appears chronic Suspect SIADH TSH and Cortisol WNL (2) Adult failure to thrive: PLAN: Adult failure to thrive, bilateral hip pain, bilateral knee pain PT OT worked with patient. Case management consult. Tylenol as needed and IV Toradol as needed ordered. (3) SBO (small bowel obstruction): PLAN: Small bowel obstruction ruled out KUB still and abdomen/pelvis CT with possible small bowel obstruction. Possible small bowel obstruction. Patient's last bowel movement about 3 days ago. N.p.o. ordered. General surgery consult. (4) Back pain: QUALIFIERS: Back pain location: low back pain Chronicity: acute Back pain laterality: bilateral Sciatica presence: unspecified whether sciatica present Qualified Code(s): M54.50 - Low back pain, unspecified PLAN: Patient states that she has pain going down both her legs down to her feet. Exam is limited as patient either has very severe pain or is very anxious about having pain. She does not want to take any medications. I explained to her that acetaminophen would be of low risk for her as the reaction she had some hair dye with peroxide should have essentially no cross-reactivity with even the likes of acetaminophen. She still does not wish to try it. I told her I am concerned that she could have a herniated disc and recommended a x-ray of her back. I told she and her daughter that an x-ray would not give us any clarity in regards to a disc herniation and if that appear to be unremarkable then the recommendation would be to do an MRI. Patient was giving mixed signals and stating that she wants to find out what is going on with her back but stated that she did not want an MRI. She initially said that she did not want any dye but I told her I was not planning on giving her any IV contrast. She then symptoms seem set against having an MRI. I told her that she needs to move and work with therapy. At told her that if she does not want any medications and that is her decision but I told her that she is here in the hospital and we can observe her if she is having a reaction. Told her if she really wants to proceed with the whole holistic approach hospital would not be the ideal source for that. Told her that we are obligated to try to help her but it makes her job difficult if she does not want to help that we can provide her. Though she does not want the medications he does not want the therapy then I would be obligated to discharge her. I told her and her daughter I do not recommend that and I did recommend that she let us try to give her medications and observe her and let us find out what is going on with her back in pain down her legs. Patient states its only been a short time but then I told her its been a week but she reference time where she broke her pelvis and was essentially bedbound for 6 weeks. From what I can gather, that was not recommended by any physician but mostly delineated by the patient herself. I think complicating a lot of her picture is severe anxiety. Patient is quick to change the subject when addressing her pain issues and our recommendations and also gives a barrage of banal minutia. Patient would certainly benefit from outpatient psychiatric assessment. I would not think that the patient would be open to taking medications, however. PLAN: Plan DVT prophylaxis: SCDs ordered. Greater than 75 minutes of which greater than 50% of the time was discussing with the patient about her pain, recommendations for pain control, as well as additional studies for evaluating her back pain. Also discussing with her that you we would be obligated to discharge the patient if she does not want to proceed with any therapies, testing and so forth. Charges/Coding Visit Charges Inpatient E&M: 84432 Subs Hosp L3
--- NOTE | 2022-11-27 08:58 | CON.PCM.SX_ITS ---
Assessment & Plan Assessment/Plan (1) SBO (small bowel obstruction): PLAN: I do not believe the patient has a small bowel obstruction. I clearly see stool and gas in the colon. It appears the distal small bowel and the proximal small bowel are nondistended and there is just a small loop that seems mildly distended. She is not complaining of any abdominal pain or nausea or vomiting. Okay for regular diet from my standpoint. She complained of a lot of back pain and says that she is unable to walk. I am unsure as to why she is having this as there was no fracture noted on CT scan. She may benefit from a spine consult as she says she is having pain shooting down her legs. Mark Blackmon MD Pager: [facility] [address] [place] [address], [address] [place] [address] Office: HPI Consult Data Date of Consult: 11/27/22 HPI Narrative HPI Narrative: CY WIGGINS, is a 77 F who presents with severe back pain. She denies any abdominal pain or nausea or vomiting. She reports that has been 3 days since her bowel movement. [facility] Medical History Arthritis Osteopenia Pelvic fracture Allergy/AdvReac Type Severity Reaction Status Date / Time ALL MEDS Allergy Other Uncoded 06/03/18 18:43 Family History unable to obtain Surgical History no surgical history Social History Smoking Status: Never smoker ROS Constitutional Constitutional: Denies anorexia, chills or fatigue Eyes Eyes: Denies blurry vision ENT HEENT: Denies abnormal hearing Cardiovascular Cardiovascular: Denies chest pain Respiratory/Chest Respiratory/Chest: Denies cough or dyspnea Gastrointestinal Gastrointestinal: Denies abdominal pain, nausea or vomiting Genitourinary Genitourinary: Denies change in urinary stream Musculoskeletal Musculoskeletal: Reports back pain and difficulty walking Integumentary Integumentary: Denies jaundice or new lesions Neurologic Neurologic: Reports abnormal gait Psychiatric Psychiatric: Denies anxiety Physical Exam Const alert and oriented x3 HEENT normocephalic Eyes PERRL Resp normal respiratory effort Cardio Rate: regular rate Rhythm: regular rhythm GI soft to palpation, non-tender and non-distended Lab / Micro Data 11/27/22 06:19 11/27/22 06:19 Labs: Laboratory Results - last 24 hr 11/26/22 20:30: WBC 10.1, RBC 3.24 L, Hgb 11.2 L, Hct 32.0 L, MCV 98.8, MCH 34.6 H, MCHC 35.0, RDW Std Deviation 45.1 H, RDW Coeff of Wanda 12.4, Plt Count 374, MPV 8.6, Immature Gran % (Auto) 0.500, Neut % (Auto) 79.9 H, Lymph % (Auto) 9.5 L, [place] % (Auto) 9.6, Eos % (Auto) 0.3, Baso % (Auto) 0.2, Absolute Neuts (auto) 8.1 H, Absolute Lymphs (auto) 0.96, Nucleated RBC % 0, ESR 37 H, Sodium 118 L*, Potassium 3.6, Chloride 85 L, Carbon Dioxide 27.0, Anion Gap 6, BUN 18, Creatinine 0.69, Estim Creat Clear Calc 45.82, Est GFR (MDRD) Af Amer 106, Est GFR (MDRD) Non-Af 88, BUN/Creatinine Ratio 26.0 H, Glucose 127 H, Calcium 9.0, Total Creatine Kinase 486 H, C-React Prot Ext Range 220.00 H 11/26/22 22:30: Urine Color Yellow, Urine Clarity Clear, Urine pH 7.0, Ur Specific [place] 1.010, Urine Protein 30 H, Urine Glucose (UA) Normal, Urine Ketones 15 H, Urine Occult Blood 25 H, Urine Nitrite Negative, Urine Bilirubin Negative, Urine Urobilinogen 8 H, Ur Leukocyte Esterase Negative, Urine RBC 0 SEEN, Urine WBC 0 SEEN, Ur Squamous Epith Cells 0 SEEN, Urine Bacteria 0 SEEN, Urine Mucus 0 SEEN 11/26/22 22:50: Sodium 118 L*, Potassium 3.7, Chloride 84 L, Carbon Dioxide 28.0, Anion Gap 6, BUN 18, Creatinine 0.70, Estim Creat Clear Calc 45.82, Est GFR (MDRD) Af Amer 104, Est GFR (MDRD) Non-Af 86, BUN/Creatinine Ratio 25.6 H, Glucose 130 H, Uric Acid 3.0, Calcium 9.5 07/10/23 01:15: Urine Osmolality 178, Ur Random Sodium 35 11/27/22 02:20: Sodium 123 L, Potassium 3.8, Chloride 93 L, Carbon Dioxide 24.0, Anion Gap 6, BUN 16, Creatinine 0.56, Estim Creat Clear Calc 44.10, Est GFR (MDRD) Af Amer 136, Est GFR (MDRD) Non-Af 113, BUN/Creatinine Ratio 28.8 H, Glucose 140 H, Serum Osmolality 259 L, Calcium 8.6 11/27/22 06:19: WBC 9.2, RBC 2.88 L, Hgb 9.9 L, Hct 28.7 L, MCV 99.7 H, MCH 34.4 H, MCHC 34.5, RDW Std Deviation 45.0 H, RDW Coeff of Wanda 12.3, Plt Count 363, MPV 8.8, Immature Gran % (Auto) 0.500, Neut % (Auto) 75.9 H, Lymph % (Auto) 12.2 L, [place] % (Auto) 10.5 H, Eos % (Auto) 0.7, Baso % (Auto) 0.2, Absolute Neuts (auto) 7.0, Absolute Lymphs (auto) 1.12, Nucleated RBC % 0, Sodium 125 L, Potassium 3.8, Chloride 94 L, Carbon Dioxide 25.0, Anion Gap 6, BUN 15, C reatinine 0.53 L, Estim Creat Clear Calc 44.10, Est GFR (MDRD) Af Amer 144, Est GFR (MDRD) Non-Af 119, BUN/Creatinine Ratio 28.3 H, Glucose 123 H, Calcium 8.7, Phosphorus 2.9, Magnesium 1.8, TSH 0.66, Cortisol 12.80 Radiology Impression Chest X-Ray 11/26/22 20:50 IMPRESSION: No acute radiographic abnormalities. Electronically Signed: Sabas Benedict MD at 22:38 EDT , KUB X-Ray 11/26/22 20:50 IMPRESSION: Findings concerning for small bowel obstruction. Electronically Signed: Sabas Benedict MD at 22:37 EDT , ADDENDUM: 11/26/22 225 IMPRESSION: Findings concerning for small bowel obstruction. N.B. : Justin Huizar MD, confirmed on 11/26/2022 22:44:59 (ET) that the healthcare facility has received the radiology report. Electronically Signed: Sabas Benedict MD at 22:37 EDT , Knee X-Ray 11/26/22 20:50 IMPRESSION: Moderate, lateral compartment predominant, tricompartmental degenerative arthrosis of the knee. Chondrocalcinosis consistent with CPPD. Small joint effusion. Electronically Signed: Sabas Benedict MD at 22:36 EDT , Abdomen/Pelvis CT 11/26/22 22:46 IMPRESSION: 1. Borderline dilated 3 cm small bowel loops in the lower abdomen with collapsed segments of distal ileum may be due to early or mild degree of small bowel obstruction. 2. The colon is not decompressed. Moderate diverticulosis of the sigmoid, no evidence of acute diverticulitis. 3. Nonvisualized appendix. 4. Partially contracted gallbladder. 5. Jung catheter balloon in collapsed urinary bladder. Mild apparent hydroureteronephrosis, uncertain chronicity. Electronically Signed: Evie Henry MD at 1:28 EDT ,
[2022-11-27 10:52] LABS: Anion Gap 5 (5-15); BUN 15 mg/dL (7-18); BUN/Creat Ratio 29.2 RATIO (10-20); Calcium,Total 8.7 mg/dL (8.5-10.1); Chloride 95 mmol/L (98-107); Creatinine, Serum 0.51 mg/dL (0.55-1.02); EST Glomerular Filtration Rate 123 mL/min (>60); Est Glom Filt Rate - Afr Amer 149 mL/min (>60); Glucose 120 mg/dL (74-106); Potassium 3.7 mmol/L (3.5-5.1); Sodium Level 126 mmol/L (136-145)
[2022-11-27 12:05] VITALS: BP 135/85; PULSE 90; RESP 18; TEMP 36.9
[2022-11-27 13:06] LABS: Anion Gap 6 (5-15); BUN 14 mg/dL (7-18); BUN/Creat Ratio 23.8 RATIO (10-20); Calcium,Total 9.2 mg/dL (8.5-10.1); Chloride 94 mmol/L (98-107); Creatinine, Serum 0.59 mg/dL (0.55-1.02); EST Glomerular Filtration Rate 105 mL/min (>60); Est Glom Filt Rate - Afr Amer 127 mL/min (>60); Glucose 118 mg/dL (74-106); Potassium 3.5 mmol/L (3.5-5.1); Sodium Level 125 mmol/L (136-145)
--- NOTE | 2022-11-27 13:10 | RAD_ITS ---
INDICATION: back pain EXAMINATION/TECHNIQUE: X-RAY - XR Spine Lumbar 2 or 3 Views COMPARISON: None. FINDINGS: VERTEBRAE: Preserved vertebral body height. Right L4 pedicle not well seen. No spondylolisthesis. Preservation of the normal lumbar lordosis. DISCS: Disc spaces are maintained. INCLUDED ABDOMEN: Included bowel gas pattern is non-obstructive. RAD/Lumbar Spine 2 or 3 Views IMPRESSION: No acute compression fracture. Right L4 pedicle not well seen which may be artifact of positioning but CT lumbar spine recommended to confirm integrity of this pedicle and to exclude lytic lesion. Electronically Signed: Rafat Reyes MD at 18:36 EDT ,
[2022-11-27 13:50] VITALS: PULSE 90; RESP 18
--- NOTE | 2022-11-27 14:00 | CASEMGMT ---
RN CM Face to Face with patient for initial transition planning/care coordination assessment. RN CM introduced self and role at [facility]. Patient lying in bed, alert and oriented. Patient willing to participate in assessment and is able to answer all questions appropriately. Care providers, pharmacy, and demographics verified. Patient is not sure of disposition at discharge, will monitor progress with therapy for possible SNF vs outpatient therapy. Patient states he has no further needs or concerns at this time. CM to follow for discharge planning needs that may arise. PCP: No PCP, will provided PCP list Specialists: none Preferred Pharmacy: [facility] Insurance: [employer] Prescription Benefit: yes Living Will/HPOA: yes, Makenzie Citlalli HPOA LNOK: daughter Living Arrangements: Patient lives alone in a single story condo with 1 step to enter. Patient states she was independent at home. Transportation: self DME/HHC: Patient states she has BSC, walker, and wheelchair at home. No previous HHC or SNF. Disposition Plan: TBD, will monitor progress with therapy, anticipate SNF vs outpatient therapy. Risa VILLAGRAN, RN, CM
--- NOTE | 2022-11-27 14:27 | CON.PCM.SX_ITS ---
HPI Consult Data Date of Consult: 11/27/22 HPI Narrative HPI Narrative: CY WIGGINS, is a 77 F who presents [facility] Medical History Arthritis Osteopenia Pelvic fracture Allergy/AdvReac Type Severity Reaction Status Date / Time ALL MEDS Allergy Other Uncoded 06/03/18 18:43 Family History unable to obtain Surgical History no surgical history Social History Smoking Status: Never smoker Lab / Micro Data 11/27/22 06:19 11/27/22 12:46 Labs: Laboratory Results - last 24 hr 11/26/22 20:30: WBC 10.1, RBC 3.24 L, Hgb 11.2 L, Hct 32.0 L, MCV 98.8, MCH 34.6 H, MCHC 35.0, RDW Std Deviation 45.1 H, RDW Coeff of Wanda 12.4, Plt Count 374, MPV 8.6, Immature Gran % (Auto) 0.500, Neut % (Auto) 79.9 H, Lymph % (Auto) 9.5 L, [place] % (Auto) 9.6, Eos % (Auto) 0.3, Baso % (Auto) 0.2, Absolute Neuts (auto) 8.1 H, Absolute Lymphs (auto) 0.96, Nucleated RBC % 0, ESR 37 H, Sodium 118 L*, Potassium 3.6, Chloride 85 L, Carbon Dioxide 27.0, Anion Gap 6, BUN 18, Creatinine 0.69, Estim Creat Clear Calc 45.82, Est GFR (MDRD) Af Amer 106, Est GFR (MDRD) Non-Af 88, BUN/Creatinine Ratio 26.0 H, Glucose 127 H, Calcium 9.0, Total Creatine Kinase 486 H, C-React Prot Ext Range 220.00 H 11/26/22 22:30: Urine Color Yellow, Urine Clarity Clear, Urine pH 7.0, Ur Specific [place] 1.010, Urine Protein 30 H, Urine Glucose (UA) Normal, Urine Ketones 15 H, Urine Occult Blood 25 H, Urine Nitrite Negative, Urine Bilirubin Negative, Urine Urobilinogen 8 H, Ur Leukocyte Esterase Negative, Urine RBC 0 SEEN, Urine WBC 0 SEEN, Ur Squamous Epith Cells 0 SEEN, Urine Bacteria 0 SEEN, Urine Mucus 0 SEEN 11/26/22 22:50: Sodium 118 L*, Potassium 3.7, Chloride 84 L, Carbon Dioxide 28.0, Anion Gap 6, BUN 18, Creatinine 0.70, Estim Creat Clear Calc 45.82, Est GFR (MDRD) Af Amer 104, Est GFR (MDRD) Non-Af 86, BUN/Creatinine Ratio 25.6 H, Glucose 130 H, Uric Acid 3.0, Calcium 9.5 11/27/22 01:15: Urine Osmolality 178, Ur Random Sodium 35 11/27/22 02:20: Sodium 123 L, Potassium 3.8, Chloride 93 L, Carbon Dioxide 24.0, Anion Gap 6, BUN 16, Creatinine 0.56, Estim Creat Clear Calc 44.10, Est GFR (MDRD) Af Amer 136, Est GFR (MDRD) Non-Af 113, BUN/Creatinine Ratio 28.8 H, Glucose 140 H, Serum Osmolality 259 L, Calcium 8.6 11/27/22 06:19: WBC 9.2, RBC 2.88 L, Hgb 9.9 L, Hct 28.7 L, MCV 99.7 H, MCH 34.4 H, MCHC 34.5, RDW Std Deviation 45.0 H, RDW Coeff of [place]anda 12.3, Plt Count 363, MPV 8.8, Immature Gran % (Auto) 0.500, Neut % (Auto) 75.9 H, Lymph % (Auto) 12.2 L, [place] % (Auto) 10.5 H, Eos % (Auto) 0.7, Baso % (Auto) 0.2, Absolute Neuts (auto) 7.0, Absolute Lymphs (auto) 1.12, Nucleated RBC % 0, Sodium 125 L, Potassium 3.8, Chloride 94 L, Carbon Dioxide 25.0, Anion Gap 6, BUN 15, Creatinine 0.53 L, Estim Creat Clear Calc 44.10, Est GFR (MDRD) Af Amer 144, Est GFR (MDRD) Non-Af 119, BUN/Creatinine Ratio 28.3 H, Glucose 123 H, Calcium 8.7, Phosphorus 2.9, Magnesium 1.8, TSH 0.66, Cortisol 12.80 11/27/22 10:17: Sodium 126 L, Potassium 3.7, Chloride 95 L, Carbon Dioxide 26.0, Anion Gap 5, BUN 15, Creatinine 0.51 L, Estim Creat Clear Calc 44.10, Est GFR (MDRD) Af Amer 149, Est GFR (MDRD) Non-Af 123, BUN/Creatinine Ratio 29.2 H, Glucose 120 H, Calcium 8.7 11/27/22 12:46: Sodium 125 L, Potassium 3.5, Chloride 94 L, Carbon Dioxide 25.0, Anion Gap 6, BUN 14, Creatinine 0.59, Estim Creat Clear Calc 44.10, Est GFR (MDRD) Af Amer 127, Est GFR (MDRD) Non-Af 105, BUN/Creatinine Ratio 23.8 H, Glucose 118 H, Calcium 9.2 Radiology Impression Chest X-Ray 11/26/22 20:50 IMPRESSION: No acute radiographic abnormalities. Electronically Signed: Sabas Benedict MD at 22:38 EDT , KUB X-Ray 11/26/22 20:50 IMPRESSION: Findings concerning for small bowel obstruction. Electronically Signed: Sabas Benedict MD at 22:37 EDT , ADDENDUM: 11/26/22 2251 IMPRESSION: Findings concerning for small bowel obstruction. N.B. : Justin Huizar MD, confirmed on 11/26/2022 22:44:59 (ET) that the healthcare facility has received the radiology report. Electronically Signed: Sabas Beendict MD at 22:37 EDT , Knee X-Ray 11/26/22 20:50 IMPRESSION: Moderate, lateral compartment predominant, tricompartmental degenerative arthrosis of the knee. Chondrocalcinosis consistent with CPPD. Small joint effusion. Electronically Signed: Sabas Benedict MD at 22:36 EDT , Abdomen/Pelvis CT 11/26/22 22:46 IMPRESSION: 1. Borderline dilated 3 cm small bowel loops in the lower abdomen with collapsed segments of distal ileum may be due to early or mild degree of small bowel obstruction. 2. The colon is not decompressed. Moderate diverticulosis of the sigmoid, no evidence of acute diverticulitis. 3. Nonvisualized appendix. 4. Partially contracted gallbladder. 5. Jung catheter balloon in collapsed urinary bladder. Mild apparent hydroureteronephrosis, uncertain chronicity. Electronically Signed: Evie Henry MD at 1:28 EDT ,
--- NOTE | 2022-11-27 14:27 | CHAPLAIN ---
Type of Pastoral Visit _x__ Initial Visit ___ Follow-up Visit ___ On-call Visit ___ General Patient Visit ___ Spiritual Assessment ___ Family Conference ___ Bereavement ___ Rapid Response ___ Code Blue ___ Other (describe below) Pastoral Care Referral From _x__ Patient ___ Family _x__ Nurse ___ Physician ___ Director Of Psychiatry ___ Financial Administrator ___ Other (describe below) Sacrament/Intervention _x__ Active listening ___ Anointing ___ Mormon ___ Bereavement ___ Communion _x__ Kathy exploration ___ _x__ Life review _x__ Prayer ___ Reconciliation ___ Sacrament of Sick _x__ Supportive presence ___ Wedding ___ Other (describe below) Pastoral Comments patient had requested visit from the leather colorer per staff members; found pt had just returned to room from testing; pt is welcoming and identifies self as I'm in ministry too; pt is very anxious and asks if she can tell this leather colorer her background story; pt gives life review and presents her fears about medications from her past medical history; pt also presents her fears as disappointing God and making Him angry with her; pt is concerned about staying in the hospital and about going home too; pt wants prayer support and reaches out her hands to be held; pt expresses appreciation for the spiritual care support as CM walks in next to meet with pt
[2022-11-27 17:52] LABS: Anion Gap 7 (5-15); BUN 16 mg/dL (7-18); BUN/Creat Ratio 23.1 RATIO (10-20); Calcium,Total 9.2 mg/dL (8.5-10.1); Chloride 94 mmol/L (98-107); Creatinine, Serum 0.69 mg/dL (0.55-1.02); EST Glomerular Filtration Rate 87 mL/min (>60); Est Glom Filt Rate - Afr Amer 106 mL/min (>60); Glucose 137 mg/dL (74-106); Potassium 3.6 mmol/L (3.5-5.1); Sodium Level 125 mmol/L (136-145)
[2022-11-27 21:00] VITALS: BP 143/89; PULSE 111; RESP 18; TEMP 37; O2SAT 96
[2022-11-27 21:34] LABS: Anion Gap 5 (5-15); BUN 16 mg/dL (7-18); BUN/Creat Ratio 23.4 RATIO (10-20); Calcium,Total 9.2 mg/dL (8.5-10.1); Chloride 94 mmol/L (98-107); Creatinine, Serum 0.68 mg/dL (0.55-1.02); EST Glomerular Filtration Rate 89 mL/min (>60); Est Glom Filt Rate - Afr Amer 107 mL/min (>60); Glucose 140 mg/dL (74-106); Potassium 3.6 mmol/L (3.5-5.1); Sodium Level 125 mmol/L (136-145)
--- NOTE | 2022-11-27 22:10 | NURSING ---
Pt c/o back and BLE pain, but refusing to take pain medication, and her IV fluid at this time. This RN also informed pt about use of SCDs and why MD ordered them, but pt refused to wear them. Pt was also offered [employer] system to try for urine collection since sample is needed, pt also refused. No further concerns at this time.
[2022-11-28 01:46] LABS: Osmolality, Urine 512 mOsm/KG
[2022-11-28 04:09] VITALS: BP 145/83; PULSE 115; RESP 18; TEMP 37; O2SAT 96
[2022-11-28 07:18] VITALS: O2SAT 97
--- NOTE | 2022-11-28 07:59 | PCM.PN.HOSP ---
Reason for Visit Reason for Visit: Diagnoses Hypo-osmolality and hyponatremia (11/26/22) Unspecified intestinal obstruction, unspecified as to partial versus complete obstruction (11/26/22) Unspecified internal derangement of right knee (11/26/22) Low back pain, unspecified (11/26/22) Adult failure to thrive (11/26/22) Subjective Subjective Able to move her legs. Objective Data Objective Data Vital Signs: Vital Signs Temp Pulse Resp BP Pulse Ox O2 Del Method 37.0 C 115 H 18 145/83 H 96 Room Air 11/28/22 04:09 11/28/22 04:09 11/28/22 04:09 11/28/22 04:09 11/28/22 04:09 11/28/22 04:20 Oxygen Delivery Method Room Air Weight: 63.7 kg Body Mass Index (BMI) 22.3 Intake & Output: Intake and Output for Last 24 Hours 11/26/22 11/27/22 11/28/22 23:59 23:59 23:59 Intake Total 3392.5 / 3392.5 Output Total 650 / 650 100 / 100 Balance 2742.5 / 2742.5 -100 / -100 Lab / Micro Data 11/27/22 06:19 11/27/22 20:55 Labs: Laboratory Results - last 24 hr 11/27/22 06:19: Cortisol 12.80 11/27/22 10:17: Sodium 126 L, Potassium 3.7, Chloride 95 L, Carbon Dioxide 26.0, Anion Gap 5, BUN 15, Creatinine 0.51 L, Estim Creat Clear Calc 44.10, Est GFR (MDRD) Af Amer 149, Est GFR (MDRD) Non-Af 123, BUN/Creatinine Ratio 29.2 H, Glucose 120 H, Calcium 8.7 11/27/22 12:46: Sodium 125 L, Potassium 3.5, Chloride 94 L, Carbon Dioxide 25.0, Anion Gap 6, BUN 14, Creatinine 0.59, Estim Creat Clear Calc 44.10, Est GFR (MDRD) Af Amer 127, Est GFR (MDRD) Non-Af 105, BUN/Creatinine Ratio 23.8 H, Glucose 118 H, Calcium 9.2 11/27/22 16:18: Sodium 125 L, Potassium 3.6, Chloride 94 L, Carbon Dioxide 24.0, Anion Gap 7, BUN 16, Creatinine 0.69, Estim Creat Clear Calc 44.10, Est GFR (MDRD) Af Amer 106, Est GFR (MDRD) Non-Af 87, BUN/Creatinine Ratio 23.1 H, Glucose 137 H, Calcium 9.2 11/27/22 20:55: Sodium 125 L, Potassium 3.6, Chloride 94 L, Carbon Dioxide 26.0, Anion Gap 5, BUN 16, Creatinine 0.68, Estim Creat Clear Calc 44.10, Est GFR (MDRD) Af Amer 107, Est GFR (MDRD) Non-Af 89, BUN/Creatinine Ratio 23.4 H, Glucose 140 H, Calcium 9.2 11/28/22 01:05: Urine Osmolality 512 Radiography Diagnostic Testing: Radiology Impression Lumbar Spine X-Ray 11/27/22 13:10 IMPRESSION: No acute compression fracture. Right L4 pedicle not well seen which may be artifact of positioning but CT lumbar spine recommended to confirm integrity of this pedicle and to exclude lytic lesion. Electronically Signed: Rafat Reyes MD at 18:36 EDT , Physical Exam Const alert and no apparent distress Constitutional Narrative: still goes on tangents. HEENT head/scalp atraumatic Extremity normal to inspection Neuro Neuro Narrative: moves her legs spontaneously. Assessment & Plan Assessment/Plan (1) Acute hyponatremia: PLAN: Improved Appears chronic Suspect SIADH TSH and Cortisol WNL (2) Adult failure to thrive: PLAN: Adult failure to thrive, bilateral hip pain, bilateral knee pain PT OT worked with patient. Case management consult. Tylenol as needed and IV Toradol as needed ordered. (3) SBO (small bowel obstruction): PLAN: Small bowel obstruction ruled out Seen by Diet advanced. (4) Back pain: QUALIFIERS: Back pain laterality: bilateral Back pain location: low back pain Chronicity: acute Sciatica presence: unspecified whether sciatica present Qualified Code(s): M54.50 - Low back pain, unspecified PLAN: Patient states that she has pain going down both her legs down to her feet. Exam is limited as patient either has very severe pain or is very anxious about having pain. She does not want to take any medications. (All meds listed under allergies) Previously, I explained to her that acetaminophen would be of low risk for her as the reaction she had some hair dye with peroxide should have essentially no cross-reactivity with even the likes of acetaminophen. She still does not wish to try it. 11/27: I told her I am concerned that she could have a herniated disc and recommended a x-ray of her back. I told she and her daughter that an x-ray would not give us any clarity in regards to a disc herniation and if that appear to be unremarkable then the recommendation would be to do an MRI. Patient was giving mixed signals and stating that she wants to find out what is going on with her back but stated that she did not want an MRI. She initially said that she did not want any dye but I told her I was not planning on giving her any IV contrast. She then symptoms seem set against having an MRI. I told her that she needs to move and work with therapy. At told her that if she does not want any medications and that is her decision but I told her that she is here in the hospital and we can observe her if she is having a reaction. Told her if she really wants to proceed with the whole holistic approach hospital would not be the ideal source for that. Told her that we are obligated to try to help her but it makes her job difficult if she does not want to help that we can provide her. Though she does not want the medications he does not want the therapy then I would be obligated to discharge her. I told her and her daughter I do not recommend that and I did recommend that she let us try to give her medications and observe her and let us find out what is going on with her back in pain down her legs. Patient states its only been a short time but then I told her its been a week but she reference time where she broke her pelvis and was essentially bedbound for 6 weeks. From what I can gather, that was not recommended by any physician but mostly delineated by the patient herself. 11/28: With her RN in the room, patient able (willing) to move her legs. I addressed anxiety with the patient and she started talking about how this is [place] time for wedding dresses and she is anxious. I explained that the anxiety extends way beyond this hospitalization and back to when she had the hair dye reaction 40-50 years ago. I told her that she is not allergic to All Meds, but she chooses not to take any. I again told her to work with therapy. If she does not, then she will be discharged. I reviewed lumbar spine xray with her: No compression fracture. Right L4 pedicle not well seen. I still recommend MRI, she continues to decline. An MRI would be superior to CT. I think complicating a lot of her picture is severe anxiety. Patient is quick to change the subject when addressing her pain issues and our recommendations and also gives a barrage of banal minutia. Patient would certainly benefit from outpatient psychiatric assessment. I would not think that the patient would be open to taking medications, however. I am concerned that some of this may be embellished. PLAN: Plan DVT prophylaxis: SCDs ordered. Charges/Coding Visit Charges Inpatient E&M: 95712 Subs Hosp L2
[2022-11-28 09:00] VITALS: BP 181/88; PULSE 113; RESP 16; TEMP 36.9; O2SAT 95
--- NOTE | 2022-11-28 15:16 | CASEMGMT ---
Therapy is recommending patient go to a detention facility for rehab. SW met with patient and she is in agreement with going to a SNF. SW provided patient with a list of detention facility providers including quality and resource use data and consistent with patient?s preferred geographic region, medical needs, and insurance network were provided from the [facility] Guide. SW notified patient that she will need to pick a few facilities she would be okay with and SW will check on availability. Patient then got a phone call. SW will check back with patient. Jeana WINTER
[2022-11-28 16:58] VITALS: BP 151/90; PULSE 117; RESP 16; TEMP 36.6; O2SAT 96
[2022-11-28 17:14] VITALS: PULSE 121
[2022-11-28 22:00] VITALS: BP 152/82; PULSE 130; RESP 18; TEMP 36.3; O2SAT 99
[2022-11-29 03:30] VITALS: BP 143/97; PULSE 121; RESP 18; TEMP 36.4; O2SAT 96
--- NOTE | 2022-11-29 08:28 | PN.HOSP_ITS ---
Reason for Visit Reason for Visit: Diagnoses Hypo-osmolality and hyponatremia (11/26/22) Unspecified intestinal obstruction, unspecified as to partial versus complete obstruction (11/26/22) Unspecified internal derangement of right knee (11/26/22) Low back pain, unspecified (11/26/22) Adult failure to thrive (11/26/22) Subjective Subjective Moving better. Objective Data Objective Data Vital Signs: Vital Signs Temp Pulse Resp BP Pulse Ox O2 Del Method 36.4 C L 121 H 18 143/97 H 96 Room Air 11/29/22 03:30 11/29/22 03:30 11/29/22 03:30 11/29/22 03:30 11/29/22 03:30 11/29/22 03:30 Oxygen Delivery Method Room Air Weight: 63.7 kg Body Mass Index (BMI) 22.3 Intake & Output: Intake and Output for Last 24 Hours 11/27/22 11/28/22 11/29/22 23:59 23:59 23:59 Intake Total 3392.5 / 3392.5 37.5 / 37.5 Output Total 650 / 650 100 / 100 Balance 2742.5 / 2742.5 -62.5 / -62.5 Lab / Micro Data 11/27/22 06:19 11/27/22 20:55 Physical Exam Const alert and no apparent distress Constitutional Narrative: more interactive today. seen up with therapy walking in the hallway. Assessment & Plan Assessment/Plan (1) Acute hyponatremia: PLAN: Improved Appears chronic Suspect SIADH TSH and Cortisol WNL (2) Adult failure to thrive: PLAN: Adult failure to thrive, bilateral hip pain, bilateral knee pain PT OT worked with patient. Case management consult. Tylenol as needed and IV Toradol as needed ordered. (3) SBO (small bowel obstruction): PLAN: Small bowel obstruction ruled out Seen by Diet advanced. (4) Back pain: QUALIFIERS: Back pain laterality: bilateral Back pain location: low back pain Chronicity: acute Sciatica presence: unspecified whether sciatica present Qualified Code(s): M54.50 - Low back pain, unspecified PLAN: Patient states that she has pain going down both her legs down to her feet. Exam is limited as patient either has very severe pain or is very anxious about having pain. She does not want to take any medications. (All meds listed under allergies) Previously, I explained to her that acetaminophen would be of low risk for her as the reaction she had some hair dye with peroxide should have essentially no cross-reactivity with even the likes of acetaminophen. She still does not wish to try it. 11/27: * I told her I am concerned that she could have a herniated disc and recommended a x-ray of her back. I told she and her daughter that an x-ray would not give us any clarity in regards to a disc herniation and if that appear to be unremarkable then the recommendation would be to do an MRI. * Patient was giving mixed signals and stating that she wants to find out what is going on with her back but stated that she did not want an MRI. She initially said that she did not want any dye but I told her I was not planning on giving her any IV contrast. She then symptoms seem set against having an MRI. I told her that she needs to move and work with therapy. At told her that if she does not want any medications and that is her decision but I told her that she is here in the hospital and we can observe her if she is having a reaction. Told her if she really wants to proceed with the whole holistic approach hospital would not be the ideal source for that. Told her that we are obligated to try to help her but it makes her job difficult if she does not want to help that we can provide her. Though she does not want the medications he does not want the therapy then I would be obligated to discharge her. I told her and her daughter I do not recommend that and I did recommend that she let us try to give her medications and observe her and let us find out what is going on with her back in pain down her legs. Patient states its only been a short time but then I told her its been a week but she reference time where she broke her pelvis and was essentially bedbound for 6 weeks. From what I can gather, that was not recommended by any physician but mostly delineated by the patient herself. 11/28: * With her RN in the room, patient able (willing) to move her legs. I addressed anxiety with the patient and she started talking about how this is [place] time for wedding dresses and she is anxious. I explained that the anxiety extends way beyond this hospitalization and back to when she had the hair dye reaction 40-50 years ago. I told her that she is not allergic to All Meds, but she chooses not to take any. I again told her to work with therapy. If she does not, then she will be discharged. I reviewed lumbar spine xray with her: No compression fracture. Right L4 pedicle not well seen. I still recommend MRI, she continues to decline. An MRI would be superior to CT. I think complicating a lot of her picture is severe anxiety. Patient is quick to change the subject when addressing her pain issues and our recommendations and also gives a barrage of banal minutia. Patient would certainly benefit from outpatient psychiatric assessment. I would not think that the patient would be open to taking medications, however. I am concerned that some of this may be embellished. PLAN: Plan DVT prophylaxis: SCDs ordered. Had a long conversation with the patient's daughter. Did state that I feel the patient has embellishing some of her symptoms but also compounding the fact that she has anxiety and it may not deal with pain very well. Complicated by also the fact that patient declines all medications to try to help her. When discussed with the patient afterwards initially with daughter present then the daughter had to leave. Patient is that she wants to go home. I strongly encourage patient speak with her daughter about this. Patient did work with therapy and did ambulate in the hallways and was doing better. Patient wishes to go home. Case management did provide psychiatric resources for the patient. Unclear patient would follow-up time, unfortunately skeptical that she probably will not.
[2022-11-29 09:29] VITALS: BP 144/81; PULSE 122; RESP 14; TEMP 37.1; O2SAT 95
--- NOTE | 2022-11-29 10:35 | CASEMGMT ---
Social Work SW spoke w/pt in room in regard to [facility] placement. Pt states has not yet reviewed the list, she states she does not know what is going on w/her medically yet. SW explained that we don't wait until someone is medically ready before we start working on placement. SW explained that we first need to send a referral, then once a facility accepts a pt we need insurance authorization, SW educated pt that this whole process can take some time. Pt states understanding. She has not reviewed the list yet, wants to speak w/family about options. SW did review w/pt the facilities in [place] as she states would prefer to stay in [place] if possible. Pt will call family, and SW explained that SW will stop back later for choices. Pt states understanding. Plan continues to be for SNF, pt to have choices later today and then SW will send referrals. MANASA Florez
--- NOTE | 2022-11-29 15:09 | DCINST_ITS ---
Discharge Instructions Diet Discharge Diet: No restrictions Follow Up Care Test Results: Test results from this visit will be discussed in further detail at your follow- up appointment, if applicable. Discharge Plan Admission Admit Date/Time: 11/26/22 22:32 Primary Reason for Your Visit: back pain. hyponatremia Attending Provider: Chandana Suarez Primary Care Provider: Marko Mendieta,No Primary Consulting Providers: Sumanth Rudolph; Mark Blackmon Instructions Additional Instructions / Restrictions: I strongly recommend that he follow-up with primary care physician so that they can do if he were medical issues. I do strongly encourage you to follow-up and see about having additional therapy services as well as psychiatric services. Discharge Orders/Prescriptions Referrals / Follow Up: Care Physician,No Primary [Primary Care Provider] - Disposition Disposition (needs filled in before D/C Order can be placed): Home, Self Care
--- NOTE | 2022-11-29 15:12 | CASEMGMT ---
Therapy saw patient and she did well. They feel patient is fine for home. SW met with patient. Introduced self again and role at [facility]. SW spoke with patient about counseling for her anxiety. Patient was resistant at first, but she did then agree to take the list. Patient was very talkative and shared about her anxiety. Patient was also thrilled how well she did with therapy. Patient called the therapists yelitza sheets. Patient was pleased with how they encouraged her and were able to get her to believe in herself. Patient wanted to make sure SW told the physician how well she did with therapy. SW assured patient SW did let the physician know how well she did. Patient thanked SW for listening. Patient cannot have home health as she does not have a primary care doctor. Jeana WINTER
--- NOTE | 2022-11-29 15:13 | DS.PCM_ITS ---
Providers Date of Admission: 11/26/22 Primary Care Physician: No Primary Care Phys Consultations 11/27/22 02:24 Consult: General Surgery Routine Consulting Provider: Mark Blackmon Reason for Consult: Small bowel obstruction EMERGENT Consult: No MD Notified: Yes Date Notified: 11/27/22 Time Notified: 07:33 Method of Notification: Text Reason For Visit: HYPONATREMIA, INABILITY TO AMBULATE Diagnosis Discharge Diagnosis (1) Acute hyponatremia: Status: Acute Code(s): E87.1 - Hypo-osmolality and hyponatremia Plan: Improved Appears chronic Suspect SIADH TSH and Cortisol WNL (2) Adult failure to thrive: Status: Acute Code(s): R62.7 - Adult failure to thrive Plan: Adult failure to thrive, bilateral hip pain, bilateral knee pain PT OT worked with patient. Case management consult. Tylenol as needed and IV Toradol as needed ordered. (3) SBO (small bowel obstruction): Status: Acute Code(s): K56.609 - Unspecified intestinal obstruction, unspecified as to partial versus complete obstruction Plan: Small bowel obstruction ruled out Seen by Diet advanced. (4) Back pain: Status: Acute Code(s): M54.9 - Dorsalgia, unspecified Qualifiers: Back pain location: low back pain Chronicity: acute Back pain laterality: bilateral Sciatica presence: unspecified whether sciatica present Qualified Code(s): M54.50 - Low back pain, unspecified Plan: Patient states that she has pain going down both her legs down to her feet. Exam is limited as patient either has very severe pain or is very anxious about having pain. She does not want to take any medications. (All meds listed under allergies) Previously, I explained to her that acetaminophen would be of low risk for her as the reaction she had some hair dye with peroxide should have essentially no cross-reactivity with even the likes of acetaminophen. She still does not wish to try it. 11/27: * I told her I am concerned that she could have a herniated disc and recommended a x-ray of her back. I told she and her daughter that an x-ray would not give us any clarity in regards to a disc herniation and if that appear to be unre markable then the recommendation would be to do an MRI. * Patient was giving mixed signals and stating that she wants to find out what is going on with her back but stated that she did not want an MRI. She initially said that she did not want any dye but I told her I was not planning on giving her any IV contrast. She then symptoms seem set against having an MRI. I told her that she needs to move and work with therapy. At told her that if she does not want any medications and that is her decision but I told her that she is here in the hospital and we can observe her if she is having a reaction. Told her if she really wants to proceed with the whole holistic approach [facility] would not be the ideal source for that. Told her that we are obligated to try to help her but it makes her job difficult if she does not want to help that we can provide her. Though she does not want the me dications he does not want the therapy then I would be obligated to discharge her. I told her and her daughter I do not recommend that and I did recommend that she let us try to give her medications and observe her and let us find out what is going on with her back in pain down her legs. Patient states its only been a short time but then I told her its been a week but she reference time where she broke her pelvis and was essentially bedbound for 6 weeks. From what I can gather, that was not recommended by any physician but mostly delineated by the patient herself. 11/28: * With her RN in the room, patient able (willing) to move her legs. I addressed anxiety with the patient and she started talking about how this is [place] time for wedding dresses and she is anxious. I explained that the anxiety extends way beyond this hospitalization and back to when she had the hair dye reaction 40-50 years ago. I told her that she is not allergic to All Meds, but she chooses not to take any. I again told her to work with therapy. If she does not, then she will be discharged. I reviewed lumbar spine xray with her: No compression fracture. Right L4 pedicle not well seen. I still recommend MRI, she continues to decline. An MRI would be superior to CT. I think complicating a lot of her picture is severe anxiety. Patient is quick to change the subject when addressing her pain issues and our recommendations and also gives a barrage of banal minutia. Patient would certainly benefit from outpatient psychiatric assessment. I would not think that the patient would be open to taking medications, however. I am concerned that some of this may be embellished. Plan DVT prophylaxis: SCDs ordered. Had a long conversation with the patient's daughter. Did state that I feel the patient has embellishing some of her symptoms but also compounding the fact that she has anxiety and it may not deal with pain very well. Complicated by also the fact that patient declines all medications to try to help her. When discussed with the patient afterwards initially with daughter present then the daughter had to leave. Patient is that she wants to go home. I strongly encourage patient speak with her daughter about this. Patient did work with therapy and did ambulate in the hallways and was doing better. Patient wishes to go home. Case management did provide psychiatric resources for the patient. Unclear patient would follow-up time, unfortunately skeptical that she probably will not. Additional work-up was not entertained during this hospitalization because patient would not want any medications if she did have something. There is Primus to be further unearthed but the patient is limiting her ability to adequately care for her. Hospital Course Operations None Procedures None Summary of Care Provided Minutes Spent on Discharge: 60 Weight / BMI Weight Weight: 63.7 kg Body Mass Index (BMI) 22.3 ABG / Lab / Microbiology Data 11/27/22 06:19 11/27/22 20:55 D/C Instructions Discharge Diet: No restrictions Meaningful Use Info Meaningful Use Diagnoses (Choose all that apply): None applicable Discharge Plan Admission Admit Date/Time: 11/26/22 22:32 Primary Reason for Your Visit: back pain. hyponatremia Attending Provider: Chandana Suarez Primary Care Provider: Marko Mendieta,Joaquina Primary Consulting Providers: Sumanth Rudolph; Mark Blackmon Instructions Additional Instructions / Restrictions: I strongly recommend that he follow-up with primary care physician so that they can do if he were medical issues. I do strongly encourage you to follow-up and see about having additional therapy services as well as psychiatric services. Discharge Orders/Prescriptions Referrals / Follow Up: Marko Mendieta,Joaquina Primary [Primary Care Provider] - Disposition Disposition (needs filled in before D/C Order can be placed): Home, Self Care Charges/Coding Visit Charges Inpatient E&M: 98281 Disch Hosp >30min
[2022-11-29 16:48] VITALS: BP 159/92; PULSE 120; RESP 15; TEMP 36.6; O2SAT 98
== END 2022-11-29 18:32 | disposition home or self-care (01) | DRG 641 ==
LOC: ED 21:45 → PCU 23:05
PROVIDERS: Physician Assistant; Admitting Provider Hospitalist; Emergency Provider Emergency Medicine
DX: R62.7 Adult failure to thrive (principal); E22.2 Syndrome of inappropriate secretion of antidiuretic hormone; M54.50 Low back pain, unspecified; F41.9 Anxiety disorder, unspecified; M25.551 Pain in right hip; M25.552 Pain in left hip; M25.561 Pain in right knee; M25.562 Pain in left knee; R26.2 Difficulty in walking, not elsewhere classified; Z68.22 Body mass index [BMI] 22.0-22.9, adult
CPT/HCPCS: 36415; 71045; 72100; 73560; 74018; 74176; 80048; 81001; 82533; 82550; 83735; 83930; 83935; 84100; 84300; 84443; 84550; 85025; 85652; 86140; 93005; 97116; 97162; 97166; 97530; 97535; 99285; J7030